=== PATIENT | female | born 1985 | race Caucasian/White ===

== ENCOUNTER → 2018-09-17 | Outpatient (CLI) | payer OTHER | LOC: EMCIMAGING 08:33 | PROVIDERS: ATTEND Family Medicine | DX: M50.121 Cervical disc disorder at C4-C5 level with radiculopathy (principal); M48.02 Spinal stenosis, cervical region; E04.1 Nontoxic single thyroid nodule | CPT/HCPCS: 72141-PN ==

== ENCOUNTER → 2018-09-26 | Outpatient (CLI) | payer OTHER | LOC: EMCIMAGING 07:12 | PROVIDERS: ATTEND Family Medicine | DX: E04.1 Nontoxic single thyroid nodule (principal) | CPT/HCPCS: 76536-PN ==

== ENCOUNTER → 2018-10-02 | Outpatient (CLI) | payer OTHER | LOC: FIMAGING 12:04 | PROVIDERS: ATTEND Family Medicine | PROC: 0G9K3ZX Drainage of Thyroid Gland, Percutaneous Approach, Diagnostic (ICD-10-PCS; principal; 2018-10-02) | DX: E04.1 Nontoxic single thyroid nodule (principal) ==